=== PATIENT | male | born 1995 | race Caucasian/White ===

== ENCOUNTER 2023-01-15 10:11 | Emergency (ER) | payer BC, SELFPAY ==
[2023-01-15 10:13] VITALS: BP 119/78; PULSE 65; RESP 18; TEMP 37; O2SAT 100; BMI 22.1
[2023-01-15 10:45] VITALS: BP 131/85; PULSE 63; RESP 20; TEMP 36.8; O2SAT 100; BMI 26.6
--- NOTE | 2023-01-15 10:56 | EXP.UTC ---
Discharge Plan Disposition Patient Disposition: Home, Self-Care Condition: Good Prescriptions Prescriptions: New clindamycin HCl 300 mg capsule 300 mg PO Q8H Qty: 30 0RF sulfamethoxazole-trimethoprim [Bactrim DS] 800-160 mg Tablet 1 tab PO BID Qty: 20 0RF mupirocin 2 % ointment 1 applic topical TID 7 Days Qty: 15 0RF No Action buprenorphine-naloxone 8-2 mg tablet, sublingual 1 tab SUBLINGUAL DAILY Referrals Follow up/Referrals: Pascual Sanchez DO [Staff Physician] - See instructions Provider,Referral, [Primary Care Provider] - See instructions Activity Restrictions/Add. Instructions Additional Instructions/Restrictions: Rest your hands, Elevate the extremity as tolerated while you are resting. Take ibuprofen for pain. I sent in a prescription to your pharmacy. Follow up with Dr. Sanchez (orthopedics) for any problems. Hands have lots of nerves, so any damage can cause issues. I put in a referral but you need to call his office and schedule an appointment. Follow up with your regular doctor. GO TO THE ER FOR ANY WORSENING SYMPTOMS Keep the wounds clean and dry. Follow up with your regular doctor. Take the antibiotics as directed and apply the topical antibiotics as directed. Make sure you stay in contact with the health department regarding the health of the dog. Watch the puncture wounds for signs of worsening infection, such as worsening redness, drainage, swelling, etc. GO TO THE ER FOR ANY WORSENING SYMPTOMS Clinical Impressions Clinical Impression: Dog bite of left hand, Dog bite of right hand Instructions Patient Instructions: Animal Bites, DI for Animal Bites, DI for Dog Bite Discharge ED Provider: Blake Philip [facility] General Stated complaint: dog bite both hands Mode of Arrival: Ambulatory Source of Information: Patient Limitations: No Limitations Time Seen by Provider: 01/15/23 10:55 Description of Symptoms (Recalled from Triage Doc. by RN): Pt was bit by own dog on both hands. 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 He denies other injury. His tetanus immunization is up to date. Related Data Home Medications Medication Instructions Recorded Confirmed buprenorphine 8 mg-naloxone 2 mg 1 tab sublingual DAILY . 01/15/23 01/15/23 sublingual tablet Previous Rx's Medication Instructions Recorded clindamycin HCl 300 mg capsule 300 mg PO Q8H #30 caps 01/15/23 mupirocin 2 % topical ointment 1 applic topical TID 7 days #15 01/15/23 grams sulfamethoxazole 800 1 tab PO BID #20 tabs 01/15/23 mg-trimethoprim 160 mg tablet (Bactrim DS) Allergies Allergy/AdvReac Type Severity Reaction Status Date / Time amoxicillin Allergy Verified 01/15/23 10:50 Worker's Comp Is this a Worker's Comp case?: No [facility] Disclaimer: The information contained in this section may have been updated after the patient was seen, as this information can be updated by other users. Social History Smoking Status: Current some day smoker alcohol intake: current current occupational status: employed Travel in the last 8 weeks: None ROS Obtained: Yes All systems reviewed & no additional complaints except as documented Constitutional Constitutional: Denies chills and Denies fever(s) Eyes Eyes: Denies eye discharge ENT Ears, Nose, Mouth, and Throat: Denies dizziness, Denies otalgia and Denies sore throat Cardiovascular Cardiovascular: Denies chest pain Respiratory Respiratory: Denies shortness of breath, Denies chest congestion, Denies cough, Denies stridor and Denies wheezing Shahnaz
--- NOTE | 2023-01-15 11:04 | XR_ITS ---
FINAL REPORT CLINICAL HISTORY: multiple dog bites to both hands. FINDINGS: RIGHT HAND Three views demonstrate no acute fracture. There is no dislocation. The visualized joint spaces are normally aligned. The joint spaces are preserved. There is soft tissue gas between the 2nd and 3rd MCP joints. No foreign body is identified. IMPRESSION: No acute bony abnormality. No foreign body identified. Reviewed, Interpreted and Dictated by Johnnie Casanova III, MD Transcribed by Camelia Fontenot Authenticated and [facility]
--- NOTE | 2023-01-15 11:09 | PC.NURSE ---
Called RAD about xray
[2023-01-15 11:55] VITALS: BP 131/85; PULSE 63; RESP 20; TEMP 36.8; O2SAT 100
== END 2023-01-15 11:55 | disposition home or self-care (01) ==
PROVIDERS: Emergency Provider Nurse Practitioner Family
DX: S61.451A Open bite of right hand, initial encounter (principal); S61.452A Open bite of left hand, initial encounter; W54.0XXA Bitten by dog, initial encounter; F17.210 Nicotine dependence, cigarettes, uncomplicated
CPT/HCPCS: 73130; 96372; 99204; 99212; G0463

== ENCOUNTER 2024-03-19 11:08 | Emergency (ER) | payer BC, SELFPAY ==
[2024-03-19 11:30] VITALS: BP 108/64; PULSE 54; RESP 20; TEMP 36.8; O2SAT 99; BMI 20.6
--- NOTE | 2024-03-19 11:56 | ED_ITS ---
Discharge Plan Disposition Patient Disposition: Home, Self-Care Condition: Good Prescriptions Prescriptions: New doxycycline hyclate 100 mg capsule 100 mg PO Q12 10 Days Qty: 20 0RF mupirocin 2 % ointment 1 applic topical TID 7 Days Qty: 15 0RF No Action buprenorphine-naloxone 8-2 mg tablet, sublingual 1 tab SUBLINGUAL DAILY Referrals Follow up/Referrals: Provider,Referral, MD [Primary Care Provider] - See instructions Activity Restrictions/Add. Instructions Additional Instructions/Restrictions: Keep the wound clean and dry. Keep a dressing on it if you are going to be getting it dirty. Watch the wound for signs of infection, such as redness, swelling, drainage, fever. etc. Take tylenol or ibuprofen for pain. Follow up with your regular doctor. GO TO THE ER FOR ANY WORSENING SYMPTOMS OR CONCERNS. Clinical Impressions Clinical Impression: Tick bite, Cellulitis of right foot Stand Alone Forms Stand Alone Forms: Work/School Release Instructions Patient Instructions: Cellulitis, Doxycycline, Protect Yourself from Tickborne Illnesses Discharge ED Provider: Blake Philip [facility] General Stated complaint: bit by tick, right foot swollen Mode of Arrival: Ambulatory Source of Information: Patient Limitations: No Limitations Time Seen by Provider: 03/19/24 11:48 Description of Symptoms (Recalled from Triage Doc. by RN): PATIENT C/O TICK BITE TO RIGHT FOOT X 2 DAYS HEENT Symptoms (Recalled from RN notes): No Resp Symptoms (Recalled from RN notes): No Skin Symptoms (Recalled from RN notes): Yes MS Symptoms (Recalled from RN notes): No Functional Status (Recalled from RN notes): WNL History of Present Illness Provider Complaint: He states that he found a tick embedded in his skin on the lateral aspect of his right foot. He immediately removed the tick. Since then he has had worsening redness and edema at the site. There is now some clear drainage from the site. He is not a known diabetic. He denies any fever/chills/malaise. Related Data Home Medications Medication Instructions Recorded Confirmed buprenorphine 8 mg-naloxone 2 mg 1 tab sublingual DAILY 01/15/23 03/19/24 sublingual tablet Previous Rx's Medication Instructions Recorded doxycycline hyclate 100 mg capsule 100 mg PO Q12 10 days #20 caps 03/19/24 mupirocin 2 % topical ointment 1 applic topical TID 7 days #15 03/19/24 grams Allergies Allergy/AdvReac Type Severity Reaction Status Date / Time amoxicillin Allergy Verified 01/15/23 10:50 Worker's Comp Is this a Worker's Comp case?: No [facility] Disclaimer: The information contained in this section may have been updated after the patient was seen, as this information can be updated by other users. Medical History (Updated 03/19/24 @ 12:24 by Blake Philip APRN) Thyroid disease Surgical History (Updated 03/19/24 @ 11:44 by Bella Thomas RN) History of tonsillectomy Social History (Updated 01/16/23 @ 13:43 by Blake Philip APRN) Smoking Status: Current some day smoker alcohol intake: current current occupational status: employed Travel in the last 8 weeks: None ROS Obtained: Yes All systems reviewed & no additional complaints except as documented Constitutional Constitutional: Denies chills and Denies fever(s) Eyes Eyes: Denies eye discharge ENT Ears, Nose, Mouth, and Throat: Denies dizziness, Denies otalgia and Denies sore throat Cardiovascular Cardiovascular: Denies chest pain Respiratory Respiratory: Denies shortness of breath, Denies chest congestion, Denies cough, Denies stridor and Denies wheezing Gastrointestinal Gastrointestingal: Denies nausea or vomiting Musculoskeletal Musculoskeletal: Reports system reviewed and no additional complaints, except as documented and Denies arthralgias Integumentary/Breasts Skin/Breast: Reports as per HPI, Reports redness and Reports wounds Neurologic Neurologic: Denies dizziness and Denies paresthesias Allergic/Immunologic Allergic/Immunologic: Denies wheezing Physical Exam General General appearance: alert and in no apparent distress Head Head exam: atraumatic, normocephalic and normal inspection Eye Eye exam: Present normal appearance, PERRL and EOMI ENT ENT exam: Present normal exam, normal oropharynx, mucous membranes moist, TM's normal bilaterally and normal external ear exam Neck Neck exam: Present normal inspection, full ROM and trachea midline; Absent menin gismus or lymphadenopathy Chest Chest inspection: Present normal inspection and symmetric chest wall rise; Absent tenderness Respiratory Respiratory exam: Present normal lung sounds bilaterally; Absent respiratory distress Cardiovascular Cardiovascular exam: Present regular rate and normal rhythm; Absent JVD Abdominal Exam Abdominal exam: Present soft and normal bowel sounds; Absent distention, tender ness or guarding Extremities Exam Extremities exam: Present normal inspection, full ROM and normal capillary refill; Absent calf tenderness Back Exam Back exam: Present normal inspection; Absent tenderness Neurological Exam Neurological exam: Present alert and oriented X3 Psychiatric Psychiatric exam: Present normal affect and normal mood Skin Skin exam: Present erythema (there is an area of erythema that measures 3 cm diameter on the lateral aspect of his right foot. there is an open area in its center that has a small amount of clear drainage. no induration) Lymphatic Lymphatic Findings: no adenopathy Medical Decision Making Medical Records Medical records reviewed: No I reviewed the patient's medical records. Maximilian Inquiry Pt receiving controlled substance: No Vital Signs: 03/19/24 11:30 Temperature 98.2 F Temperature Source Oral Pulse Rate [Left Brachial] 54 L Respiratory Rate 20 Blood Pressure [Left Arm] 108/64 L Blood Pressure Mean [Left Arm] 78 Blood Pressure Source [Left Arm] Automatic Cuff Blood Pressure Position [Left Arm] Sitting 02 Sat by Pulse Oximetry 99 Oxygen Delivery Method Room Air
[2024-03-19 12:30] VITALS: BP 108/64; PULSE 54; RESP 20; TEMP 36.8; O2SAT 99
--- NOTE | 2024-03-25 08:31 | PC.WOUNDNOTE ---
Spoke with patient about wound culture results and states that he is taking both abx, and is getting better.
== END 2024-03-19 12:33 | disposition home or self-care (01) ==
PROVIDERS: Emergency Provider Nurse Practitioner Family
DX: L03.115 Cellulitis of right lower limb (principal); B95.2 Enterococcus as the cause of diseases classified elsewhere; B95.7 Other staphylococcus as the cause of diseases classified elsewhere; B95.62 Methicillin resistant Staphylococcus aureus infection as the cause of diseases classified elsewhere; B96.89 Other specified bacterial agents as the cause of diseases classified elsewhere; S90.861A Insect bite (nonvenomous), right foot, initial encounter; W57.XXXA Bitten or stung by nonvenomous insect and other nonvenomous arthropods, initial encounter; F17.210 Nicotine dependence, cigarettes, uncomplicated
CPT/HCPCS: 87070; 87077; 87186; 87205; 99212; 99214; G0463

== ENCOUNTER 2024-03-21 17:04 | Emergency (ER) | payer BC, SELFPAY ==
--- NOTE | 2024-03-21 17:47 | EXP.UTC ---
Discharge Plan Disposition Patient Disposition: Home, Self-Care Condition: Good Prescriptions Prescriptions: New sulfamethoxazole-trimethoprim [Bactrim DS] 800-160 mg Tablet 1 tab PO Q12H Qty: 20 0RF silver sulfadiazine [Silvadene] 1 % cream 1 applic topical DAILY Qty: 25 0RF Rx Instructions: apply a 1.5 mm thickness No Action doxycycline hyclate 100 mg capsule 100 mg PO Q12 10 Days Qty: 20 0RF mupirocin 2 % ointment 1 applic topical TID 7 Days Qty: 15 0RF buprenorphine-naloxone 8-2 mg tablet, sublingual 1 tab SUBLINGUAL DAILY Referrals Follow up/Referrals: Provider,Referral, MD [Primary Care Provider] - See instructions Activity Restrictions/Add. Instructions Additional Instructions/Restrictions: Follow up with PCP if not improving Clinical Impressions Clinical Impression: Tick bite, Cellulitis of right foot Instructions Patient Instructions: DI for Cellulitis -- Adult Discharge ED Provider: Staci Ríos [facility] HPI General Stated complaint: tick bite RT Foot Time Seen by Provider: 03/21/24 17:55 History of Present Illness Provider Complaint: Tick bite to outside of right foot 5 days ago. He removed the tick without issues. 2 days later it got red and swollen. Seen here for antibiotics. Has been cleaning it with peroxide. Seems to be getting worse. Onset (ago): day(s) (5) Location: right and lower extremity Relieving factors: none Exacerbating factors: none Associated symptoms: denies other symptoms Treatments prior to arrival: none Related Data Home Medications Medication Instructions Recorded Confirmed buprenorphine 8 mg-naloxone 2 mg 1 tab sublingual DAILY 01/15/23 03/19/24 sublingual tablet Previous Rx's Medication Instructions Recorded doxycycline hyclate 100 mg capsule 100 mg PO Q12 10 days #20 caps 03/19/24 mupirocin 2 % topical ointment 1 applic topical TID 7 days #15 03/19/24 grams silver sulfadiazine 1 % topical 1 applic topical DAILY #25 grams 03/21/24 cream (Silvadene) sulfamethoxazole 800 1 tab PO Q12H #20 tabs 03/21/24 mg-trimethoprim 160 mg tablet (Bactrim DS) Allergies Allergy/AdvReac Type Severity Reaction Status Date / Time amoxicillin Allergy Verified 03/21/24 17:53 [facility] Disclaimer: The information contained in this section may have been updated after the patient was seen, as this information can be updated by other users. Medical History (Updated 03/21/24 @ 17:59 by BETHANY Holbrook) Thyroid disease Surgical History (Updated 03/19/24 @ 11:44 by Bella Thomas RN) History of tonsillectomy Social History (Updated 01/16/23 @ 13:43 by Blake Philip APRN) Smoking Status: Current some day smoker alcohol intake: current current occupational status: employed Travel in the last 8 weeks: None ROS Obtained: Yes All systems reviewed & no additional complaints except as documented Constitutional Constitutional: Denies chills and Denies fever(s) Eyes Eyes: Denies eye discharge ENT Ears, Nose, Mouth, and Throat: Denies dizziness, Denies otalgia and Denies sore throat Cardiovascular Cardiovascular: Denies chest pain Respiratory Respiratory: Denies shortness of breath, Denies chest congestion, Denies cough, Denies stridor and Denies wheezing Gastrointestinal Gastrointestingal: Denies nausea or vomiting Musculoskeletal Musculoskeletal: Reports system reviewed and no additional complaints, except as documented and Denies arthralgias Integumentary/Breasts Skin/Breast: Reports as per HPI, Reports redness and Reports wounds Neurologic Neurologic: Denies dizziness and Denies paresthesias Allergic/Immunologic Allergic/Immunologic: Denies wheezing Physical Exam General General appearance: alert and in no apparent distress Head Head exam: atraumatic, normocephalic and normal inspection Eye Eye exam: Present normal appearance, PERRL and EOMI ENT ENT exam: Present normal exam, normal oropharynx, mucous membranes moist, TM's normal bilaterally and normal external ear exam Neck Neck exam: Present normal inspection, full ROM and trachea midline; Absent meningismus or lymphadenopathy Chest Chest inspection: Present normal inspection and symmetric chest wall rise; Absent tenderness Respiratory Respiratory exam: Present normal lung sounds bilaterally; Absent respiratory distress Cardiovascular Cardiovascular exam: Present regular rate and normal rhythm; Absent JVD Abdominal Exam Abdominal exam: Present soft and normal bowel sounds; Absent distention, tenderness or guarding Extremities Exam Extremities exam: Present normal inspection, full ROM and normal capillary refill; Absent calf tenderness Expanded Lower Extremity Exam Right: Ankle image: 1. blister/bullous impetigo type lesion Back Exam Back exam: Present normal inspection; Absent tenderness Neurological Exam Neurological exam: Present alert and oriented X3 Psychiatric Psychiatric exam: Present normal affect and normal mood Skin Skin exam: Present erythema (there is an area of erythema that measures 3 cm diameter on the lateral aspect of his right foot. there is an open area in its center that has a small amount of clear drainage. no induration) Lymphatic Lymphatic Findings: no adenopathy Medical Decision Making Maximilian Inquiry Pt receiving controlled substance: No
[2024-03-21 17:48] VITALS: BP 116/65; PULSE 58; RESP 16; TEMP 36.6; O2SAT 98; BMI 21.3
[2024-03-21 18:31] VITALS: BP 124/61; PULSE 62; RESP 18; TEMP 36.6
== END 2024-03-21 18:34 | disposition home or self-care (01) ==
PROVIDERS: Emergency Provider Physician Assistant
DX: L03.115 Cellulitis of right lower limb (principal); S90.861A Insect bite (nonvenomous), right foot, initial encounter; W57.XXXA Bitten or stung by nonvenomous insect and other nonvenomous arthropods, initial encounter
CPT/HCPCS: 99212; 99214; G0463

== ENCOUNTER 2024-11-30 17:08 | Emergency (ER) | payer MEDICAID, SELFPAY ==
[2024-11-30 17:21] VITALS: BP 106/60; PULSE 60; RESP 16; TEMP 36.9; O2SAT 99; BMI 22.6
[2024-11-30 17:32] LABS: Coronavirus 19, PCR Not Detected (NotDetected); Influenza A, PCR Not Detected (NotDetected); Influenza B, PCR Not Detected (NotDetected)
[2024-11-30 18:22] LABS: Strep Scrn Group A (Rapid) Negative (Negative)
--- NOTE | 2024-11-30 18:52 | PC.NURSE ---
pt brought back to RM 11 from the lobby. pt c/o the roof of his mouth being sore and painful. pt appears to have ulcers forming in the roof of his mouth. no other complaints. no needs voiced. call hsieh in reach.
--- NOTE | 2024-11-30 18:53 | ED_ITS ---
<Statement entered by Renate Dominguez MD - 12/01/24 00:18> I was consulted by the JAMES, and we discussed the complexity of problems being addressed. I approved the treatment and management plan for this patient's care in the emergency department, thus performing a substantive portion of the medical decision making. Renate Dominguez MD Discharge Plan Disposition Patient Disposition: Home, Self-Care Condition: Good Prescriptions Prescriptions: No Action No Known Home Medications Referrals Follow up/Referrals: Provider,Referral, [Primary Care Provider] - See instructions Activity Restrictions/Add. Instructions Additional Instructions/Restrictions: Today your evaluated in the emergency department, you have irritation on the roof of your mouth. Please do not eat anything spicy or salty. Please use the Magic mouthwash as directed. Follow-up with your PCP. Return to the ED for worsening of condition. Clinical Impressions Clinical Impression: Aphthous ulcer of mouth Instructions Patient Instructions: DI for Acute Pain -- Adult Print Language Print Language: [place] African Discharge ED Provider: Renate Dominguez General Adult HPI General Chief complaint: PAIN Stated complaint: MCDERMOTT,roof of mouth hurts Time Seen by Provider: 11/30/24 19:00 Mode of Arrival: Ambulatory Source of Information: Patient Limitations: No Limitations Description of Symptoms (Recalled from ER Triage Doc. by RN): Pt presents with c/o roof of the mouth being red/painful, and headache since yesterday. History of Present Illness HPI narrative: patient is a 29-year-old male no significant PMH who presents to the ED for pain on the roof of his mouth x 1 day. Patient states he works at [employer] and has been eating those new spicy chicken tenders Related Data Home Medications ?Medication ?Instructions ?Recorded ?Confirmed No Known Home Medications 11/30/24 11/30/24 Allergies Allergy/AdvReac Type Severity Reaction Status Date / Time amoxicillin Allergy Rash Verified 11/30/24 18:58 [facility] Disclaimer: The information contained in this section may have been updated after the patient was seen, as this information can be updated by other users. Medical History (Updated 11/30/24 @ 18:58 by Mora Moraes APRN) Thyroid disease Surgical History (Updated 03/19/24 @ 11:44 by Belal Thomas RN) History of tonsillectomy Social History (Updated 01/16/23 @ 13:43 by Blake Philip APRN) Smoking Status: Current every day smoker alcohol intake: current current occupational status: employed Travel in the last 8 weeks: None Have you lived/traveled outside US in past 30 days?: No Contact w/someone who lives/traveled outside US past 30 days?: No Exposure to someone with infectious disease in past 14 days?: No Do you have a fever (greater than 100.4 F or 38 C)?: No Have you tested positive for COVID-19: No Exposed to someone with COVID-19 in past 14 days?: No Do you have a sore throat?: No Do you have a cough?: No Do you have any weakness?: No Do you have any diarrhea?: No Are you experiencing any unusual bleeding?: No Do you have any muscle aches/pain?: No Do you have any abdominal pain?: No Are you experiencing loss of taste or smell?: No ROS Obtained: Yes Systems reviewed as appropriate & no additional complaints except as documented Physical Exam General General appearance: alert and in no apparent distress Head Head exam: atraumatic and normocephalic Eye Eye exam: Present normal appearance and PERRL ENT ENT exam: Present normal exam and other (apthous ulcer on roof of mouth ) Neck Neck exam: Present normal inspection Chest Chest inspection: Present normal inspection and symmetric chest wall rise; Absent tenderness Respiratory Respiratory exam: Present normal lung sounds bilaterally Cardiovascular Cardiovascular exam: Present regular rate Abdominal Exam Abdominal exam: Present soft and normal bowel sounds; Absent tenderness Extremities Exam Extremities exam: Present normal inspection and full ROM Back Exam Back exam: Present normal inspection and full ROM Neurological Exam Neurological exam: Present alert and oriented X3 Psychiatric Psychiatric exam: Present normal affect and normal mood Skin Skin exam: Present warm and dry Medical Decision Making Medical Records Screening: Per USPSTF and CDC recommendations, given the prevalence of disease in our region, it is our hospital?s policy to screen for HIV and viral Hepatitis for all patients aged 18 and over and those with ongoing risk factors. Maximilian Inquiry Pt receiving controlled substance: No Vital Signs: 11/30/24 17:21 Temperature 98.4 F Temperature Source Oral Pulse Rate [Right] 60 Respiratory Rate 16 Blood Pressure [Right Arm] 106/60 L Blood Pressure Mean [Right Arm] 75 Blood Pressure Source [Right Arm] Automatic Cuff Blood Pressure Position [Right Arm] Sitting 02 Sat by Pulse Oximetry 99 Oxygen Delivery Method Room Air Lab Data Lab Results 11/30/24 17:26: SARS-CoV-2 (PCR) Not detected, Influenza A Untype (PCR) Not detected, Influenza Type B (PCR) Not detected, Group A Strep Rapid Negative Orders (Tests/Meds): ED MEDICATIONS Generic Name Dose Route Start Last Admin Trade Name Genoveva PRN Reason Stop Dose Admin Tetracycl/Hydrocort/Nystatin/Diphen 15 ml 11/30/24 21:00 Magic Mouthwash 300ml Bottle PO 12/30/24 20:59 QID COUNT INCLUDES THE [facility] ORDERS Category Date Time Status Rapid PCR Covid and Flu A/B Stat Lab 11/30/24 17:26 Completed Strep Scrn Group A (Rapid) Stat Lab 11/30/24 17:26 Completed Strep Screen Confirmation Stat Micro 11/30/24 17:26 Received Medical Decision Narrative: In summary, patient is a 29-year-old male no significant PMH who presents to the ED for pain on the roof of his mouth x 1 day. Patient states he works at [employer] and has been eating those new spicy chicken tenders. He states since then, he has pain on the roof of his mouth. He denies any other medical history. Denies any other medical complaints. Upon initial exam, patient is alert, oriented and cooperative. Patient is hemodynamically stable. Physical exam remarkable for aphthous ulcer on roof of mouth. I discussed with patient that we can give him Magic mouthwash while in the ED. Advised him to stay away from spicy foods. Advised him to eat popsicles which may help with the pain. We discussed taking acetaminophen and ibuprofen [id number] for symptomatic relief. Patient verbalized understanding of all instructions. Advised him to follow-up with his PCP within 7 days. We discussed return precautions to the ED. Patient verbalized understanding. He was given a bottle of Magic mouthwash while in the ED. Critical Care Critical Care Time Critical Care Time: No
[2024-11-30] MEDS: MAGIC MOUTHWASH 300ML BOTTLE 15 ML PO (19:06)
[2024-11-30 19:11] VITALS: BP 136/81; PULSE 79; RESP 16; TEMP 36.7; O2SAT 99
== END 2024-11-30 19:13 | disposition home or self-care (01) ==
PROVIDERS: Emergency Provider Student in an Organized Health Care Education/Training Program
DX: K12.0 Recurrent oral aphthae (principal); R51.9 Headache, unspecified; K13.79 Other lesions of oral mucosa; Z72.0 Tobacco use
CPT/HCPCS: 87430; 87636; 99283

== ENCOUNTER 2025-09-16 18:04 | Outpatient (CLI) | payer OTHER, SELFPAY ==
--- OUTSIDE RECORDS SUMMARY | 2025-09-16 18:07 | XMS_ITS | Clinical Summary ---
Author Organization [email or web address] [facility] are Address [address] [place] [address] Phone Care Team Providers Care Crankshaft Grinder Name Role Phone Unavailable Unavailable Conditions or Problems No information available. Medications No information available. Medications Administered No information available. Allergies, Adverse Reactions, Alerts No information available. Results No information available. Plan of Care No information available. Procedures No information available. Vital Signs No information available. Immunizations No information available. Advance Directives No information available.
--- NOTE | 2025-09-16 18:12 | XR_ITS ---
PROCEDURE INFORMATION: Exam: XR Left Wrist Exam date and time: 09/16/2025 6:02 PM Age: 30 years old Clinical indication: Pain; Wrist; Left TECHNIQUE: Imaging protocol: Radiologic exam of the left wrist. Views: 1 or 2 views. COMPARISON: No relevant prior studies available. FINDINGS: Bones/joints: Old fracture deformity mid diaphysis 5th metacarpal bone. No acute fracture. Soft tissues: Normal. IMPRESSION: 1. No evidence for acute fracture. 2. Old fracture deformity mid diaphysis 5th metacarpal bone.
== END 2025-09-16 23:59 | disposition home or self-care (01) ==
LOC: RAD 18:06
PROVIDERS: Visit Provider Nurse Practitioner Family
DX: M25.532 Pain in left wrist (principal); Z87.81 Personal history of (healed) traumatic fracture
CPT/HCPCS: 73100